=== PATIENT | female | born 1945 | race Two or more races ===

== ENCOUNTER 2017-10-31 09:15 | Day surgery (SDC) | payer OTHER | END 2017-10-31 14:30 | disposition home or self-care (01) | LOC: AMB-ENDOS 09:15 | DX: D12.3 Benign neoplasm of transverse colon (principal); D12.2 Benign neoplasm of ascending colon; K52.89 Other specified noninfective gastroenteritis and colitis; Q43.8 Other specified congenital malformations of intestine ==

== ENCOUNTER 2017-11-22 12:00 | Inpatient (IN) | payer OTHER ==
[~2017-11-22] VITALS: Ht 160 cm; Wt 56.7 kg
[2017-11-22] MEDS ORDERED: METFORMIN HCL500 MG PO (14:26)
[2017-11-22] MEDS ORDERED: ISORBIDE PO (14:27)
[2017-11-22] MEDS ORDERED: AVAPRO150 MG PO (14:31)
[2017-11-22] MEDS ORDERED: FENOFIBRATE PO (14:31)
[2017-11-22] MEDS ORDERED: GLIMEPIRIDE2 MG PO (14:31)
[2017-11-22] MEDS ORDERED: HYDRAZINE SULFAT1 GM PO (14:32)
[2017-11-22] MEDS ORDERED: LEVOXYL PO (14:32)
[2017-11-22] MEDS ORDERED: HUMULIN 70100 UNIT/2 (14:33)
[2017-11-22] MEDS ORDERED: FEROSUL325 MG PO (14:34)
[2017-12-13] MEDS ORDERED: TYLENOL ARTHRI650 MG PO (08:35)
== END 2017-12-13 12:45 | disposition home or self-care (01) | DRG 330 ==
LOC: O/R 12-06 07:09 → SURH 12-06 07:09 → ICU 12-08 19:58 → SURG 12-12 17:53
PROVIDERS: Surgery
PROC: 07TC4ZZ Resection of Pelvis Lymphatic, Percutaneous Endoscopic Approach (ICD-10-PCS; 2017-12-06)
PROC: 0DTU4ZZ Resection of Omentum, Percutaneous Endoscopic Approach (ICD-10-PCS; 2017-12-06)
PROC: 30233N1 Transfusion of Nonautologous Red Blood Cells into Peripheral Vein, Percutaneous Approach (ICD-10-PCS; 2017-12-06)
PROC: 0DTF4ZZ Resection of Right Large Intestine, Percutaneous Endoscopic Approach (ICD-10-PCS; principal; 2017-12-06 08:30)
PROC: 02HV33Z Insertion of Infusion Device into Superior Vena Cava, Percutaneous Approach (ICD-10-PCS; 2017-12-08)
DX: C18.2 Malignant neoplasm of ascending colon (principal); N17.8 Other acute kidney failure; D62 Acute posthemorrhagic anemia; R59.0 Localized enlarged lymph nodes; E13.22 Other specified diabetes mellitus with diabetic chronic kidney disease; I13.10 Hypertensive heart and chronic kidney disease without heart failure, with stage 1 through stage 4 chronic kidney disease, or unspecified chronic kidney disease; N18.9 Chronic kidney disease, unspecified; E03.8 Other specified hypothyroidism

== ENCOUNTER 2017-11-24 08:50 | Day surgery (SDC) | payer OTHER ==
[~2017-11-24 08:50] MED LIST: AVAPRO150 MG PO; FENOFIBRATE PO; FEROSUL325 MG PO; GLIMEPIRIDE2 MG PO; HUMULIN 70100 UNIT/2; HYDRAZINE SULFAT1 GM PO; ISORBIDE PO; LEVOXYL PO; METFORMIN HCL500 MG PO
== END 2017-11-24 16:25 | disposition home or self-care (01) ==
LOC: AMB-ENDOS 08:50
DX: D12.2 Benign neoplasm of ascending colon (principal); D12.3 Benign neoplasm of transverse colon